=== PATIENT | male | born 1945 | race Two or more races ===

== ENCOUNTER 2019-03-16 17:36 | Emergency (ER) | payer OTHER ==
[~2019-03-16] VITALS: Ht 175.3 cm; Wt 113.4 kg
[~2019-03-16 17:36] MED LIST: NEURONTIN300 MG PO
[2019-03-16] MEDS ORDERED: TAMS0.4C (17:49)
[2019-03-16] MEDS ORDERED: METFORMIN HCL500 MG (17:49)
== END 2019-03-16 20:13 | disposition home or self-care (01) ==
LOC: ER 17:36
DX: S40.012A Contusion of left shoulder, initial encounter (principal); S40.011A Contusion of right shoulder, initial encounter; M25.512 Pain in left shoulder; M25.511 Pain in right shoulder; V49.9XXA Car occupant (driver) (passenger) injured in unspecified traffic accident, initial encounter; Y93.89 Activity, other specified; Y92.488 Other paved roadways as the place of occurrence of the external cause; Y99.8 Other external cause status

== ENCOUNTER 2020-11-26 16:10 | Inpatient (IN) | payer OTHER ==
[~2020-11-26] VITALS: Ht 175.3 cm; Wt 92.5 kg
[~2020-11-26 16:10] MED LIST changes: +METFORMIN HCL500 MG; +TAMS0.4C
[2020-11-28] MEDS ORDERED: CLOTRIMAZOLE-BE15 G1 (16:22)
[2020-11-28] MEDS ORDERED: AMLODIPINE BESYL5 MG (16:22)
[2020-11-28] MEDS ORDERED: METFORMIN HCL500 M4 (16:22)
[2020-11-29] MEDS ORDERED: ACYCLOVIR15 GM TOP (16:40)
[2020-11-29] MEDS ORDERED: ZOVIRAX800 MG PO (16:42)
== END 2020-11-29 19:36 | disposition home or self-care (01) | DRG 125 ==
LOC: ER 16:10 → MEDI 11-27 10:57
PROVIDERS: ADMIT Internal Medicine; ATTEND Internal Medicine
PROC: BN23ZZZ Computerized Tomography (CT Scan) of Bilateral Orbits (ICD-10-PCS; principal; 2020-11-27)
PROC: 8E0ZXY6 Isolation (ICD-10-PCS; 2020-11-27)
DX: B02.39 Other herpes zoster eye disease (principal); B02.30 Zoster ocular disease, unspecified; B02.8 Zoster with other complications; I10 Essential (primary) hypertension; E11.9 Type 2 diabetes mellitus without complications; N40.0 Benign prostatic hyperplasia without lower urinary tract symptoms; Z20.822 Contact with and (suspected) exposure to COVID-19